=== PATIENT | male | born 1970 | race Caucasian/White ===

== ENCOUNTER → 2022-07-04 | Outpatient (CLI) | payer BC, SELFPAY ==
[2022-07-04 10:20] LABS: Hemoglobin 15.9 g/dL (13.0-16.5); Mean Corp Hgb Conc 33.1 g/dL (32-36); Mean Corpuscular Hgb 29.9 pg (27.0-32.0); Mean Corpuscular Volume 90.4 fL (80-94); Mean Platelet Vol. 10.1 fl (6.2-12.0); Platelet Count 240 K/mm3 (150-450); RBC Distribution Width CV 12.3 % (11.6-14.6); RBC Distribution Width SD 40.3 fl (35.1-43.9); Red Blood Count 5.31 M/mm3 (4.6-6.2); White Blood Count 6.9 K/mm3 (4.4-11.0)
[2022-07-04 10:39] LABS: Homocysteine 9.3 umol/L (3.2-10.7)
[2022-07-04 10:42] LABS: Hemoglobin A1c 5.2 % (3.8-5.6)
[2022-07-04 11:00] LABS: ALB/GLOB Ratio 1.1 RATIO (0.9-2.4); AST(SGOT) 20 U/L (15-37); Alanine Aminotransfer ALT/SGPT 38 U/L (16-61); Albumin, Serum 4.1 g/dL (3.2-5.0); Alkaline Phosphatase 50 U/L (45-117); Anion Gap 7 (5-15); BUN 15 mg/dL (7-18); BUN/Creat Ratio 13.3 RATIO (10-20); CRP, High Sensitivity Cardiac 1.55 mg/L; Calcium,Total 9.5 mg/dL (8.5-10.1); Chloride 108 mmol/L (98-107); Cholesterol 202 mg/dL (200); Creatinine, Serum 1.13 mg/dL (0.70-1.30); EST Glomerular Filtration Rate 73 mL/min (>60); Est Glom Filt Rate - Afr Amer 88 mL/min (>60); Estradiol 21.3 pg/mL; Follicle Stimulating Hormone 3.5 mIU/mL; Globulin 3.7 g/dL (2.2-4.2); Glucose 96 mg/dL (74-106); High Density Lipoprotein 46 mg/dL; Iron 91 ug/dL (65-175); Luteinizing Hormone 6.2 mIU/mL; Magnesium 2.3 mg/dL (1.6-2.6); Potassium 4.2 mmol/L (3.5-5.1); Prolactin 14.4 ng/mL; Protein, Total 7.8 g/dL (6.4-8.2); Sodium Level 140 mmol/L (136-145); T4 Free Direct 0.86 ng/dL (0.76-1.46); T4 Total, Thyroxin 7.5 ug/dL (4.5-12.1); Thyroid Stim Hormone (TSH) 1.92 uIU/mL (0.358-3.74); Triglycerides 127 mg/dL; Very Low Density Lipoprotein 25 mg/dL (5-40)
[2022-07-04 14:23] LABS: Progesterone Level 0.48 ng/mL (See Comment); T3 Total - Triiodothyronine 1.14 ng/mL (0.6-1.81); Vitamin B12 439 pg/mL (211-911); Vitamin D,25 Hydroxy 26.2 ng/mL
[2022-07-09 13:08] LABS: Insulin Like Growth Factor 147 ng/mL (74-255); Testosterone, % Free 3.78 % (1.50-4.20); Testosterone, Free 9.37 ng/dL (5.00-21.00)
[2022-07-09 20:35] LABS: Sex Hormone-binding Globulin 10.1 nmol/L (19.3-76.4); Testosterone, Total 248 ng/dL (264-916)
== END | disposition home or self-care (01) ==
PROVIDERS: Referring Provider Nurse Practitioner Family; Visit Provider Nurse Practitioner Family
DX: R53.82 Chronic fatigue, unspecified (principal); R68.82 Decreased libido; M62.81 Muscle weakness (generalized); E66.9 Obesity, unspecified; Z12.5 Encounter for screening for malignant neoplasm of prostate
CPT/HCPCS: 36415; 80053; 80061; 82306; 82533; 82607; 82627; 82670; 82746; 83001; 83002; 83036; 83090; 83540; 83735; 84144; 84146; 84153; 84270; 84305; 84402; 84403; 84436; 84439; 84443; 84480; 85027; 86141; 82626; G0103